=== PATIENT | male | born 1960 | race Caucasian/White ===

== ENCOUNTER 2023-08-22 13:02 | Outpatient (CLI) | payer OTHER ==
[~2023-08-22 13:02] MED LIST: Iopamidol 300 61% 100 ML VIAL FS ONE
== END 2023-08-22 13:03 | disposition home or self-care (01) ==
LOC: CSHCT 13:02
PROVIDERS: ATTEND Family Medicine
DX: I82.421 Acute embolism and thrombosis of right iliac vein (principal); I82.401 Acute embolism and thrombosis of unspecified deep veins of right lower extremity; Z95.9 Presence of cardiac and vascular implant and graft, unspecified
CPT/HCPCS: 74177; 82565; Q9967